=== PATIENT | male | born 1965 | race African-American/Black ===

== ENCOUNTER → 2016-09-22 | Day surgery (SDC) | payer BC ==
[~2016-09-22] MED LIST: ALPRAZOLAM XR0.5 MG PO; HYDROCODON-ACE1 EA11 PO; PROPRANOLOL PO; VALSARTAN320 MG PO
--- NOTE | ~2016-09-22 | OR ---
Unit #: [id number] #: [id number] Patient: DEVAUGHN MCKNIGHT [id number] [address] [place], [place] [address] [id number] MR#: [id number] NAME: DEVAUGHN MCKNIGHT ROOM: Date of Procedure: 09/22/2016 Admission Date: 09/22/2016 Surgeon: Tyrel Hernandez M.D. : 1965 Attending Physician: Tyrel Hernandez M.D. Primary Care Physician: Nara Garcia A.P.R.N. OPERATIVE REPORT PROCEDURE PERFORMED Colonoscopy with snare polypectomy. INDICATIONS FOR PROCEDURE Average risk for colorectal cancer. MEDICATIONS Monitored anesthesia. POSTOPERATIVE FINDINGS 1. Polyp, 5 mm, transverse colon, snared and sent for histopathology. 2. Diverticulosis. 3. Good prep. PLAN Repeat colonoscopy in 5 to 10 years. DESCRIPTION OF PROCEDURE The patient was explained of the procedure, risks, and benefits along with the risks and benefits of anesthesia. He was brought to the endoscopy room. Propofol anesthesia was given. Rectal exam was done, which was normal. Colonoscope was lubricated, passed up the rectum, advanced under direct vision all the way to the cecum. Cecum was identified by ileocecal valve and appendiceal orifice. Polyp seen in transverse colon was snared and sent for histopathology. I retroflexed in the rectum, small hemorrhoids seen. The scope was gently pulled out. He tolerated it well. No major complications were seen. Dictated by... Jody Ngo/alexey TD: 09/23/2016 03:35 JOB #: [id number] Unit #: [id number] #: [id number] Patient: DEVAUGHN MCKNIGHT OPERATIVE REPORT Page 1 of 1 X Tyrel Hernandez MD X PROCEDURE OPERATIVE NOTE
== END | disposition home or self-care (01) ==
LOC: COPS 07:03
DX: Z12.11 Encounter for screening for malignant neoplasm of colon (principal); D12.3 Benign neoplasm of transverse colon; K57.30 Diverticulosis of large intestine without perforation or abscess without bleeding; K64.9 Unspecified hemorrhoids; I10 Essential (primary) hypertension; F17.200 Nicotine dependence, unspecified, uncomplicated; Z79.891 Long term (current) use of opiate analgesic; Z79.899 Other long term (current) drug therapy
CPT/HCPCS: 88305; J2250